=== PATIENT | male | born 2000 | race Caucasian/White ===

== ENCOUNTER 2022-03-14 10:06 | Emergency (ER) | payer OTHER, SELFPAY ==
--- NOTE | 2022-03-14 10:08 | ED.SKABFB ---
HPI - Skin/Abscess/Foreign Bdy General Chief complaint: Skin/Abscess/Foreign Body Stated complaint: rash Time Seen by Provider: 03/14/22 10:07 Source: patient Mode of arrival: ambulatory Limitations: no limitations History of Present Illness HPI narrative: Mr. Gomez is a 21-year-old male patient presenting to the clinic today with complaints of a rash x2 days He reports he was out in the [place] staying and thinks that he is gotten poison sandrita. He has an itchy raised blistery rash on his arms, face, legs, and neck. MD complaint: rash Related Data Allergies Allergy/AdvReac Type Severity Reaction Status Date / Time No Known Allergies Allergy Verified 03/14/22 10:29 Review of Systems Review of Systems: Pertinent positives per HPI. Patient denies any fever, chills, headache, visual changes, dizziness, cough, runny nose, sore throat, shortness of breath, chest pain, palpitations, nausea, vomiting, diarrhea, constipation, abdominal pain, or any urinary issues. PMFSH Comments At the time of my signature, I reviewed and agree with the nursing past medical, surgical, social, and family history. There is no relevant family history pertinent to the patient complaint. Exam Narrative: General: Well-developed, well nourished, in no apparent distress Head: Normocephalic, atraumatic. Cardio: Regular rate and rhythm, s1 and s2 normal, no murmur appreciated. Resp: Clear to auscultation bilaterally, no rhonchi, rales, wheezing or rubs. Integumentary: [place], warm, and dry, intact without lesion, red, itchy, raised, blistery rash to bilateral arms, bilateral legs, anterior neck, and right side of chin. Course Course Emergency Course: Portions of this record may have been created with voice recognition software. Level of Care: Express Care Visit Vital Signs Vital signs: Vital Signs Temperature 36.7 C 03/14/22 10:28 Pulse Rate 99 03/14/22 10:28 Respiratory Rate 18 03/14/22 10:28 Pulse Oximetry 99 03/14/22 10:28 Oxygen Delivery Room Air 03/14/22 10:28 Temperature 36.7 C 03/14/22 10:28 Pulse Rate 99 03/14/22 10:28 Respiratory Rate 18 03/14/22 10:28 Blood Pressure 146/92 H 03/14/22 10:35 Pulse Oximetry 99 03/14/22 10:28 Oxygen Delivery Room Air 03/14/22 10:28 Vital signs reviewed MDM - Skin/Abscess/Foreign Bdy MDM Narrative Medical decision making narrative: At the time of visit patient is resting comfortably on the exam table. He has a raised red itchy blistery rash to the arms, legs, neck, and face that appeared to be a contact dermatitis due to plant. I will treat him with a dose of Decadron 10 mg IM in the clinic and give him a course of prednisone to take orally. Supportive measures were discussed with the patient he voiced understanding of discharge instructions and agrees to the treatment plan. Discharge Plan Discharge Clinical Impression: Allergic contact dermatitis due to plant Patient Disposition: Home, Self-Care Condition: Stable Instructions: Contact Dermatitis (ED), Poison Sandrita (ED), Cold Compress or Soak (ED) Additional Instructions: Decadron 10 mg IM given in the clinic today May take 25 to 50 mg of Benadryl every 6 hours as needed for itching May use calamine lotion to help soothe the skin Avoid hot showers, avoid scratching May use cool compresses to help soothe the skin/alleviate itching Prednisone as prescribed-start first dose on March 15, 2022 Follow-up with your PCP in 3 to 5 days if symptoms persist or sooner if they worsen Prescriptions: New prednisone 20 mg tablet 40 mg PO DAILY 5 Days Qty: 10 0RF Follow-up/Referrals: UNKNOWN,DOCTOR [Primary Care Provider] - Time of Disposition: 10:35 Quality NIHSS Nursing Documentation ED NIHSS nursing documentation: reviewed/agree
[2022-03-14 10:28] VITALS: PULSE 99; RESP 18; TEMP 36.7; O2SAT 99
[2022-03-14 10:35] VITALS: BP 146/92
== END 2022-03-14 10:40 | disposition home or self-care (01) ==
PROVIDERS: Emergency Provider Nurse Practitioner Family
DX: L23.7 Allergic contact dermatitis due to plants, except food (principal); Z86.16 Personal history of COVID-19
CPT/HCPCS: 96372; 99203; G0463; J1100

== ENCOUNTER 2024-10-22 11:41 | Emergency (ER) | payer BC, SELFPAY ==
--- NOTE | ~2024-10-22 | XR_ITS ---
EXAMINATION: XR lumbar spine 2-3V DATE: 10/22/2024 12:13 INDICATION: Right thigh numbness and tingling and pain. TECHNIQUE: 3 views of lumbar spine were obtained. COMPARISON: None. FINDINGS: There is hypolordosis of lumbar spine. Vertebral body heights and intervertebral disc heigh ts are normal. The facet joints are normal. IMPRESSION: 1. Hypolordosis of lumbar spine. Reviewed, dictated and finalized at location B. [employer]
--- NOTE | 2024-10-22 11:48 | ED_ITS ---
HPI - Extremity Problem General Chief complaint: Extremity Injury, Lower Stated complaint: rt thigh discomfort Time Seen by Provider: 10/22/24 12:00 Source: patient Mode of arrival: ambulatory Limitations: no limitations History of Present Illness HPI Narrative: Viral is a 24-year-old male patient presenting to the clinic today with complaints of right tingling for the past 4 days. He reports today it has donald en worse. Is having periods of pain with numbness and tingling. No known injury-woke up with right thigh numbness and 4 days ago. Feels as though it may be spasming at times. History of low back pain without injury. States at times over the last several months he has had pain upon wakening or when working out in his low back. States he feels as though his back is ?destroyed?. When asked if he has history of diabetes he says no history however he does feel increased thirst and feels constantly dry. Has had blood testing for diabetes in the past and states that the results were normal. No known injury to the thigh. No obvious rash. No recent weight gain. Does not normally wear tight clothing. Related Data Allergies Allergy/AdvReac Type Severity Reaction Status Date / Time codeine Allergy Mild Rash Verified 10/22/24 11:55 Review of Systems Review of Systems: Pertinent positives per HPI. Patient denies any fever, chills, rash, headache, visual changes, dizziness, cough, runny nose, sore throat, shortness of breath, chest pain, palpitations, nausea, vomiting, diarrhea, constipation, abdominal pain, or any urinary issues. PMFSH Comments At the time of my signature, I reviewed and agree with the nursing past medical, surgical, social, and family history. There is no relevant family history pertinent to the patient complaint. Exam Narrative: General: Well-developed, well nourished, in no apparent distress Head: Normocephalic, atraumatic. Cardio: Regular rate and rhythm, s1 and s2 normal, no murmur appreciated. Resp: Clear to auscultation bilaterally, no rhonchi, rales, wheezing or rubs. Musculoskeletal: No deformity, tender to palpation over the right thigh, grossly normal range of motion, muscle strength strong and equal, peripheral pulse strong, no edema, no cyanosis, normal gait and station Course Course Emergency Course: Portions of this record may have been created with voice recognition software. Level of Care: Express Care Visit Vital Signs Vital signs: Vital Signs Temperature 36.4 C L 10/22/24 11:52 Pulse Rate 93 10/22/24 11:52 Respiratory Rate 16 10/22/24 11:52 Blood Pressure 150/99 H 10/22/24 11:52 Pulse Oximetry 99 10/22/24 11:52 Oxygen Delivery Room Air 10/22/24 11:52 Temperature 36.4 C L 10/22/24 11:52 Pulse Rate 93 10/22/24 11:52 Respiratory Rate 16 10/22/24 11:52 Blood Pressure 150/99 H 10/22/24 11:52 Pulse Oximetry 99 10/22/24 11:52 Oxygen Delivery Room Air 10/22/24 11:52 Vital signs reviewed MDM - Extremity (Nontraumatic) MDM Narrative Medical decision making narrative: At the time of visit patient is resting comfortably on the exam table. Patient appears to be nontoxic. Labs: Random blood sugar was 90 Diagnostics: X-ray of the lumbar spine shows hypolordosis of the lumbar spine Plan: I suspect patient's symptoms may cause by the hypo lower doses of his lumbar spine other diagnosis would be meralgia paresthetica thumb. Will place the patient on Medrol Dosepak and Flexeril and have him follow-up with his primary care doctor later this week. Supportive measures were discussed with the patient and they voiced understanding discharge instructions and agrees to treatment plan. Return precautions reviewed Differential Diagnosis Differential diagnosis: Likely other (Herniated disc, thigh injury, muscle spasm, diabetes, nerve compression/inflammation, shingles, meralgia paresthetica) Lab Data Labs: Lab Results 10/22/24 Range/Units 12:03 POC Capillary Glucose 90 (65-105) mg/dl Imaging Data Radiologist's impression: ITS Impressions Lumbar Spine X-Ray 10/22/24 12:16 IMPRESSION: 1. Hypolordosis of lumbar spine. Discharge Plan Discharge Clinical Impression: Paresthesia and pain of right extremity Low back pain Qualifiers: Chronicity: chronic Back pain laterality: midline Sciatica presence: without sciatica Qualified Code(s): M54.50 - Low back pain, unspecified Patient Disposition: Home, Self-Care Condition: Stable Instructions: Antibiotic Form, Paresthesia (ED), Back Pain (ED), Lower Back Exercises (ED) Additional Instructions: Blood sugar was normal at 90 in the clinic today X-ray of your low back shows hypolordosis of the lumbar spine. Take Medrol Dosepak and Flexeril as directed Follow up with your PCP in 3-5 days if symptom persist. Patient Language: [place]an Prescriptions: New methylprednisolone [Medrol (Paul)] 4 mg tablets,dose pack See Rx Instructions PO .COMPLEX Qty: 21 0RF Rx Instructions: orally per package directions cyclobenzaprine 10 mg tablet 10 mg PO Q8H PRN (Reason: muscle spasm) 7 Days Qty: 21 0RF Follow-up/Referrals: UNKNOWN,DOCTOR [Primary Care Provider] - Time of Disposition: 12:29 Quality NIHSS Nursing Documentation ED NIHSS nursing documentation: reviewed/agree
[2024-10-22 11:52] VITALS: BP 150/99; PULSE 93; RESP 16; TEMP 36.4; O2SAT 99
[2024-10-22 12:06] LABS: Glucose Point of Care 90 mg/dl (65-105)
== END 2024-10-22 12:36 | disposition home or self-care (01) ==
PROVIDERS: Emergency Provider Nurse Practitioner Family
DX: R20.2 Paresthesia of skin (principal); M79.651 Pain in right thigh; M54.50 Low back pain, unspecified
CPT/HCPCS: 72100; 82948; 99213; G0463